=== PATIENT | female | born 1990 | race Caucasian/White ===

== ENCOUNTER 2018-12-05 12:17 | Inpatient (IN) ==
[2018-12-05] MEDS ORDERED: Metoclopramide 10 MG/2 ML VIAL IVP PRN (12:56)
[2018-12-05] MEDS ORDERED: Famotidine 20 MG/2 ML VIAL IVP PRN (12:56)
[2018-12-05] MEDS ORDERED: Ondansetron 4 MG/2 ML VIAL IVP PRN (12:56)
[2018-12-05] MEDS ORDERED: *HR* Nalbuphine 10 MG/ML AMPUL IVP PRN (12:56)
[2018-12-05] MEDS ORDERED: Naloxone 0.4 MG/ML INJ IVP PRN (12:56)
[2018-12-05] MEDS ORDERED: Ringers Solution, Lactated 1,000 ML IVC SCH (13:00)
[2018-12-05] MEDS ORDERED: miSOPROStol 25 MCG TABLET PO PRN (13:26)
[2018-12-05] MEDS ORDERED: Oxytocin 20 units/ LR 1000 mL 20 UNIT/1,000 ML BAG IVC SCH (13:30)
[2018-12-05 13:45] LABS: Basophils % 0.2 %; Eosinophils % 0.4 %; Hematocrit 34.9 % (35.3-44.9); Hemoglobin 11.5 g/dL (11.5-15.4); Immature Granulocytes % 0.3 % (0-4); Lymphocytes % 19.3 %; Mean Corpuscular Hemoglobin 28.2 pg (28.0-33.3); Mean Corpuscular Volume 85.5 fL (83.0-100.0); Mean Platelet Volume 11.7 fL (9.4-12.4); Monocytes # 0.4 K/mcL (0.0-1.3); Monocytes % 3.9 %; Neutrophils # 7.7 K/mcL (1.6-8.9); Platelet Count 187 K/mcL (140-400); Red Blood Count 4.08 M/mcL (3.82-4.97); Red Cell Distribution Width 13.1 % (11.5-14.5); Segmented Neutrophils % 75.9 %
--- NOTE | 2018-12-05 13:51 | Anesthesia Evaluation PreOp ---
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: Denies Any Significant HX Other Medical History: Denies Any Significant HX Anesthesia History: No Prior Anesthetic Complications, Past Anesthesia (previous epidural (hot spot)) Alcohol Use: none Drug use: none Medications and Allergies Pnv with Ca,No.72/Iron/FA [Pnv Plus Multivit Tab] 1 tab PO DAILY 11/22/18 [History] Allergy/AdvReac Type Severity Reaction Status Date / Time NSAIDS (Non-Steroidal AdvReac See Verified 11/22/18 15:12 Anti-Inflamma Comments Anesthesia Results - Labs 12/05/18 13:08 Anesthesia Exam - HEENT Pupil (Motor): Pupils equal Mallampati: II Teeth: Normal Oral Opening: Greater than 3 - POWER REACTOR OPERATOR LOC: Oriented POWER REACTOR OPERATOR Motor: Normal RUE, Normal LUE, Normal RLE, Normal LLE, Normal Face POWER REACTOR OPERATOR Sensory: Normal: RUE, LUE, RLE, LLE, Face - Cardiac Rhythm: Regular Murmur: None - Pulmonary Breath Sounds: bilateral Clear Respiratory Effort: Symmetrical Anesthesia Assess/Plan ASA Score: 2 Level of consciousness: Cooperative, Oriented Anesthetic Plan: General, Spinal, Epidural Monitoring Plan: Standard Monitors Recovery Plan: PACU
[2018-12-05] MEDS ORDERED: Lidocaine -MPF 2% 5 ML VIAL ONE (13:56)
[2018-12-05] MEDS ORDERED: Epidural Premix (fent/bupiv) 110 ML EP SCH (14:00)
[2018-12-05 14:03] LABS: Alanine Aminotransferase 17 Units/L (7-52); Amphetamine Screen,Urine Negative ng/mL (Cutoff=1000); Aspartate Amino Transferase 16 Units/L (13-39); BUN/Creatinine Ratio 10 (6-26); Barbiturate Screen,Urine Negative ng/mL (Cutoff=200); Benzodiazepines Screen,Urine Negative ng/mL (Cutoff=200); Blood Urea Nitrogen 6 mg/dL (6-20); Cannabinoid Screen,Urine Negative ng/mL (Cutoff = 50); Cocaine Screen,Urine Negative ng/mL (Cutoff= 300); Lactate Dehydrogenase 126 Units/L (140-271); Opiate Screen,Urine Negative ng/mL (Cutoff=300); Phencyclidine Screen,Urine Negative ng/mL (Cutoff=25); Protein/Creatinine Ratio,Urine 0.3 mg/mg (0.00-0.20); Uric Acid 4.3 mg/dL (2.3-7.6); eGFR For Non-African Americans > 60 (> 60)
--- NOTE | 2018-12-05 14:27 | OB/GYN History & Physical ---
Date of Encounter: 12/05/18 Time of Encounter: 14:27 Assessment and Plan (1) 38 weeks gestation of Current visit: Yes Status: Acute Admit for induction of labor for preeclampsia (2) NST (non-stress test) reactive Current visit: Yes Status: Acute FHR 145 bpm, moderate variability, +15x15 accels, no decels. (3) Pre-eclampsia affecting , antepartum Current visit: Yes Status: Acute Admitted for induction of labor by Dr. Cagle. Elevated BP's in office that persist on arrival to unit. Protein/Creatinine ratio 0.30 DTR's 3+ bilaterally, negative clonus (4) Proteinuria affecting in third trimester Current visit: Yes Status: Acute History of Present Illness Chief complaint: Preeclampsia IOL at 38w5d HPI: Ms. Christensen is a 27 year old female at 38w4d who was sent from the office for elevated blood pressure and reports headache and visual disturbances for the past couple of weeks. Her blood pressure was elevated in the office today at 160/100 so she was sent for induction. Patient does report positive movement, denies vaginal bleeding and leakage of fluid. Izabel does report preeclampsia with previous that also required induction. She is not currently on any medication for her blood pressures. Blood type O+ GBS negative Rubella Immune Varicella Immune HbSAG negative T. Pall negative HIV NR Hep C NR Past Med Surg Social Fam HX - Past Medical History Medical history: no medical history, other Psychiatric history: no psych history - Past Surgical History Additional surgical history: Endometrial surgery 2010. 2006 [place] teeth. 1996- Tonsillectomy - Social History Smoking Status: Never smoker Alcohol use: none Drug use: none Current living situation: Home - Independent Activity Level: Independent ambulation Recent Out of Country Travel Within the Last 8 Weeks: No Exposure or Possible Exposure to Illness During Travel: No - Family History Mother Hx Family Endocrine Disorder: Yes (Hypothyroidism) Father Hx Family Cardiac Disorders: Yes (HTN) Brother Name: Rastafari Age: 25 Living Status: Still Living Hx Family Cardiac Disorders: Yes (HTN) Obstetrical History - Pregnancies : 2 Para: 1 Term: 1 : 0 Ab's: 0 Livin Medications and Allergies Pnv with Ca,No.72/Iron/FA [Pnv Plus Multivit Tab] 1 tab PO DAILY 11/22/18 [History] Allergy/AdvReac Type Severity Reaction Status Date / Time NSAIDS (Non-Steroidal AdvReac See Verified 11/22/18 15:12 Anti-Inflamma Comments Exam - Constitutional Constitutional: well developed, well nourished, no acute distress, average body habitus - HEENT HEENT: Normocephaly - Neck Neck exam: full ROM, normal inspection - Lungs Respiratory exam: CTAB - Cardiovascular Cardiovascular exam: RRR, +S1, +S2 - Breasts Breast: bilateral: normal - Abdomen Abdomen: Present: bowel sounds normal, gravid, non tender - Extremities Extremities exam: full ROM, normal capillary refill, normal inspection Deep Tendon Reflex Grade: 3+ Normal But Brisk - Vulva Vulva: bilateral: normal - Vagina Vagina: Present: normal moisture - Cervix Dilation: 0 (FT) Effacement: 50 Station: -2 - Uterus Uterus exam: Present: normal size - Anus/Rectum Anus/Rectum: Present: normal perianal skin Results Result Diagrams: 12/05/18 13:08 12/05/18 13:08 Abnormal lab results Hct 34.9 % (35.3-44.9) L 12/05/18 13:08 Lactate Dehydrogenase 126 Units/L (140-271) L 12/05/18 13:08 Protein/Creatinin Ratio 0.30 mg/mg (0.00-0.20) H 12/05/18 13:08 All other labs normal. - VTE Reasons for not Prescribing Prophylaxis: Treatment not Indicated - Low risk for VTE
--- NOTE | 2018-12-05 18:28 | OB Labor Progress Note ---
Date of Encounter: 12/05/18 Time of Encounter: 18:23 Labor Progress Note - Subjective Subjective: Patient resting in bed without complaint - Vital Signs Vital Signs: WNL, afebrile - Cervix Cervix: 3/50/high - Heart Tones Heart Tones: FHR 150 bpm, moderate variability, +15x15 accels, no decels. - [place]: q 2-4 minutes - Interventions Interventions: SVE Cervical ripening balloon placed, 60 mL sterile water instilled in uterine balloon and 40 mL in vaginal balloon. Unable to determine presentation, so bedside ultrasound performed and revealed breech presentation. Dr. Landaverde on unit in another room and notified of breech presentation. Req uested her presence in patient room at earliest time possible. Cervical ripening balloon removed immediately when presentation was confirmed. - Plan Physician notified: Yes Physician notified details: Dr. Landaverde notified of breech presentation. Will be in to discuss options with patient. Plan: Stop all induction procedures and wait for Dr. Landaverde to see patient.
--- NOTE | 2018-12-05 19:18 | Event Note ---
Date of Encounter: 12/05/18 Time of Encounter: 19:00 Called to bedside to evaluate presentation, concern for breech. Patient sent from office with concern for gHTN at 38wks (new dx). Patient was kept for induction of labor. Attempted AROM by SOBEIDA Marin - did not appreciated presenting part to be head. Unstable lie appreciated on TAUS. Patient with full bladder, attempted to void. Rescanned abdomen, vertex presentation. Recommendation at this time for unstable lie was for AROM with FSE with placement of IUPC while maintaining continuos fundal pressure. AROM Clear fluid with FSE. SVE: 2-3/60/-2. FSE and IUPC placed. IN-house attending and CNM aware of the above. Will continue IOL with pitocin, with plans to progress toward . MD AREN
--- NOTE | 2018-12-05 19:56 | Anesthesia Procedures ---
Addendum entered and electronically signed by Cheo Wilson CRNA 12/06/18 06:57: Infant Delivery Date: 12/06/18 Infant Delivery Time: 04:16 Original Note: Date of Encounter: 12/05/18 Time of Encounter: 19:41 Procedures: Anesthesia - Epidural/Spinal Patient ID/Chart reviewed: Yes Patient examined: Yes OB Eval: : 2 OB Eval: Hx Para: 1 OB Eval: Contractions: Non-stressed pattern Supplemental Oxygen: None/Room Air Site Prep: Aseptic Technique, Sterile prep and drape, 0.5% Chlorhexidine/Alcohol Patient position: upright Local Anesthetic: Lidocaine 1% Amount of Local Anesthetic used: 2 Touhy Needle Gauge: 18 Touhy Needle Depth (cm): 6 Catheter Depth at Skin (cm): 10 Test Dose (1.5% Lido + Epi): Volume given (mls): 4 Test Dose Result: Negative Loading Dose: Other: 10ml from solution Loading Dose Administered: Thru Catheter Infusion Med: 0.125% Bupivacaine w/ 2 mcg/ml Fentanyl Infusion Rate (mls/hr): [address]: Tegaderm, Tape Interspace Used: L3-L4 Loss of Resistance (NA): Yes (saline) Blood: No CSF: Yes (dural puncture tech with 27g only no INJ.) Paresthesia: No Procedure: vss though out, FHR stable per RN's
[2018-12-05] MEDS ORDERED: *HR* Ropivacaine/PF 0.5% 20 ML VIAL ONE (21:35)
[2018-12-05] MEDS ORDERED: 0.9 % Sodium Chloride 1,000 ML ONE (22:33)
--- NOTE | 2018-12-05 22:46 | OB Labor Progress Note ---
Date of Encounter: 12/05/18 Time of Encounter: 22:39 Labor Progress Note - Subjective Subjective: Patient resting comfortably with epidural in place. - Vital Signs Vital Signs: Last BP 127/73, afebrile - Cervix Cervix: 5/80/-2 - Heart Tones Heart Tones: FHR 130 bpm, moderate variability, +15x15 accels, variable decelerations - [place]: Q 2-3 minutes Pitocin at 6 mu/min - Interventions Interventions: SVE 5 cm Amnioinfusion initiated with 300 ml bolus and 125 ml/hr. Anticipate - Plan Plan: Continue IOL Begin amnioinfusion Anticipate
--- NOTE | 2018-12-06 04:53 | OB/GYN Procedure Note ---
Delivery - Delivery Date: 12/06/18 Provider: Lexis Moreno (Bryan Young, PGY1) Intrapartum events: polyhydramnios Delivery induction: mercedes, misoprostol Delivery augmentation: rupture of membranes, pitocin Delivery monitor: internal FHT, internal uterine Anesthesia: epidural Quantitated Blood Loss: 50 - Infant (s) A Delivery Date: 12/06/18 Delivery Time: 04:16 Presentation: vertex Position: JAVY Route of delivery: Gender: Male Viability: Viable Pounds: 6 Ounces: 12 Weight Gram: 3070 kg at 1 minute: 8 at 5 mins: 9 Shoulder Dystocia: not encountered Specimens collected: cord blood Placenta: spontaneous Cord: true knot, 3 umbilical vessels - Repair Episiotomy: none Laceration Description: None - Complications Delivery complications: none Delivery comments: Called to room for delivery. I was gowned and gloved and together with Bryan Young, PGY1 spontaneously delivered a viable male infant over intact perineum. placed on maternal abdomen for drying and stimulation. Cord clamped and cut after pulsation ceased. Spontaneous delivery of intact placenta, EBL 50 mils. No nuchal cord, shoulder dystocia, or meconium encountered. Apgars 8 and 9 at one and 5 minutes respectively. There was a true knot in the umbilical cord and the cord was also around the foot. A 2 cm Bartholin's cyst was noted on the right vaginal wall and was drained at time of delivery. Mother and in kangaroo care for 2 hour recovery. - Disposition Mom disposition: stable in LDR disposition: stable in LDR
[2018-12-06] MEDS ORDERED: Oxytocin 20 units/ LR 1000 mL 20 UNIT/1,000 ML BAG IVC SCH (08:00)
[2018-12-06] MEDS: Prenatal Vit/FA 1 EACH TABLET PO SCH (09:20)
[2018-12-06] MEDS: Acetaminophen 325 MG TABLET PO PRN ×3 (09:20→22:26)
[2018-12-07 08:26] VITALS: BP 122/83
--- NOTE | 2018-12-07 09:57 | Discharge Summary ---
Date of Encounter: 12/07/18 Time of Encounter: 09:54 - Discharge Diagnosis (1) Vaginal delivery Priority: Primary Status: Acute Comments: Continue routine care discharge home follow up with Dr. Hardy in 4-6 weeks (2) Breast feeding status of mother Priority: Secondary Status: Acute Comments: support prn - Discharge Medications Prescriptions: No Action Pnv with Ca,No.72/Iron/FA [Pnv Plus Multivit Tab] 1 tab PO DAILY Home Medications: Pnv with Ca,No.72/Iron/FA [Pnv Plus Multivit Tab] 1 tab PO DAILY 11/22/18 [History] Allergies/Adverse Reactions: Allergy/AdvReac Type Severity Reaction Status Date / Time NSAIDS (Non-Steroidal AdvReac See Verified 11/22/18 15:12 Anti-Inflamma Comments Data Procedures and tests throughout hospitalization: Laboratory Tests 12/05/18 12/05/18 12/05/18 13:08 13:08 13:08 WBC 10.1 RBC 4.08 Hgb 11.5 Hct 34.9 L MCV 85.5 MCH 28.2 MCHC 33.0 RDW 13.1 Plt Count 187 MPV 11.7 Immature Gran % 0.3 Seg Neutrophils % 75.9 Lymphocytes % 19.3 Monocytes % 3.9 Eosinophils % 0.4 Basophils % 0.2 Neutrophils # 7.7 Lymphocytes # 2.0 Monocytes # 0.4 Eosinophils # 0.0 Basophils # 0.0 BUN Creatinine Est GFR ( Amer) Est GFR (Non-Af Amer) BUN/Creatinine Ratio Uric Acid AST ALT Lactate Dehydrogenase Urine Creatinine 33 Protein/Creatinin Ratio 0.30 H Urine Total Protein 10 Urine Opiates Screen Negative Ur Barbiturates Screen Negative Ur Phencyclidine Scrn Negative Ur Amphetamines Screen Negative U Benzodiazepines Scrn Negative Urine Cocaine Screen Negative U Marijuana (THC) Screen Negative Ur Drug Screen Interp See Below 12/05/18 13:08 WBC RBC Hgb Hct MCV MCH MCHC RDW Plt Count MPV Immature Gran % Seg Neutrophils % Lymphocytes % Monocytes % Eosinophils % Basophils % Neutrophils # Lymphocytes # Monocytes # Eosinophils # Basophils # BUN 6 Creatinine 0.61 Est GFR ( Amer) > 60 Est GFR (Non-Af Amer) > 60 BUN/Creatinine Ratio 10 Uric Acid 4.3 AST 16 ALT 17 Lactate Dehydrogenase 126 L Urine Creatinine Protein/Creatinin Ratio Urine Total Protein Urine Opiates Screen Ur Barbiturates Screen Ur Phencyclidine Scrn Ur Amphetamines Screen U Benzodiazepines Scrn Urine Cocaine Screen U Marijuana (THC) Screen Ur Drug Screen Interp Date of admission: 12/05/18 12:17 Primary care physician: Nelly Hardy Consults: 12/06/18 08:00 Consult to Storm Window Installer [CONS] Routine Comment: Vaginal delivery, consult needed Discharging clinician: Sonya Lowery Anticipated date of discharge: 12/07/18 - Patient Status Disposition: Home, Self-Care Condition: Good Functional capacity at discharge: independent ambulation - Discharge Instructions Follow Up With: Nelly Hardy MD [Primary Care Provider] - Howard Hardy MD [Partnered Physician] - - Diet and Activity Activity: increase activity as tolerated Diet: regular diet Hospital Course Reason for admission: induction of labor Delivery: Episiotomy: none Laceration: none Other procedures: none complications: none Discharge diagnosis: IUP at term delivered [place] baby: male (breast feeding) Time Attestation: Total time spent providing and/or coordinating discharge services: Time Spent: Less than 30 minutes Exam - Constitutional Vitals: Temp Pulse Resp BP Pulse Ox 98 F 98 16 122/83 99 12/07/18 08:25 12/07/18 08:25 12/07/18 08:50 12/07/18 08:25 12/07/18 08:25 General appearance IM: A&O X 3, pleasant, answers questions appropriately - Respiratory Respiratory exam: Present: CTAB - Cardiovascular Cardiovascular exam IM: Present: RRR, +S1, +S2 - GI/Abdominal GI/Abdominal exam IM: normal bowel sounds - Uterine Tone: Firm Uterus Position: At Umbilicus, Midline - Neurological Exam Neurological exam: alert, oriented X3, reflexes normal
[2018-12-07] MEDS: Acetaminophen 325 MG TABLET PO PRN (10:25)
[2018-12-07] MEDS: Prenatal Vit/FA 1 EACH TABLET PO SCH (10:25)
== END 2018-12-07 11:04 | disposition home or self-care (01) | DRG 560 ==
LOC: 1NENULAB 12:17 → 1NENUOBS 12-06 08:12
PROVIDERS: ADMIT Registered Nurse; ATTEND Registered Nurse